=== PATIENT | male | born 1940 | race Caucasian/White ===

== ENCOUNTER 2017-06-18 08:59 | Day surgery (SDC) | payer MEDICARE, OTHER ==
[2017-06-18] MEDS ORDERED: PROPOFOL 20 ML (10:35)
[2017-06-18] MEDS ORDERED: MIDAZOLAM 1 MG/ML 2 ML INJ (10:35)
[2017-06-18] MEDS ORDERED: LIDOCAINE 2% (SDV) 5 ML INJ (10:35)
== END 2017-06-18 15:40 | disposition home or self-care (01) ==
LOC: GIL 08:59
DX: R19.4 Change in bowel habit (principal); K44.9 Diaphragmatic hernia without obstruction or gangrene; K21.9 Gastro-esophageal reflux disease without esophagitis; K29.70 Gastritis, unspecified, without bleeding; D12.6 Benign neoplasm of colon, unspecified; K64.8 Other hemorrhoids; I10 Essential (primary) hypertension; E78.5 Hyperlipidemia, unspecified
CPT/HCPCS: 43239